=== PATIENT | male | born 1945 | race Asian ===

== ENCOUNTER 2019-08-27 06:44 | Day surgery (SDC) | payer MEDICARE, OTHER ==
[~2019-08-27 06:44] MED LIST: CYCLOPENTOLATE 1% OPHTH DROPS 2 ML ONE; KETOROLAC 0.45% OPHTH DROPS ONE; PHENYLEPHRINE 2.5% OPHTH 2 ML DROPS ONE; PROPARACAINE 0.5% OPHTH DROPS 15 ML ONE
[2019-08-27] MEDS ORDERED: MIDAZOLAM 2 MG/2 ML VIAL IVP ONE (06:45)
[2019-08-27] MEDS ORDERED: fentaNYL 100 MCG/2 ML VIAL IVP ONE (06:45)
[2019-08-27] MEDS ORDERED: LACTATED RINGERS 500 ML IV ONE (06:49)
[2019-08-27] MEDS ORDERED: CYCLOPENTOLATE 1% OPHTH DROPS 2 ML LEFTEYE ONE (07:00)
[2019-08-27] MEDS ORDERED: KETOROLAC 0.45% OPHTH DROPS LEFTEYE ONE (07:00)
[2019-08-27] MEDS ORDERED: PROPARACAINE 0.5% OPHTH DROPS 15 ML LEFTEYE ONE ×2 (07:00→07:54)
[2019-08-27] MEDS ORDERED: PHENYLEPHRINE 2.5% OPHTH 2 ML DROPS LEFTEYE ONE (07:00)
[2019-08-27] MEDS ORDERED: TRIAMCIN/MOXIFLOX OPHTHALMIC 0.6 ML VIAL IO ONE (07:07)
[2019-08-27] MEDS ORDERED: BRIMONIDINE 0.2% OPHTH DROPS 5 ML ONE (07:07)
[2019-08-27] MEDS ORDERED: TIMOLOL 0.5% OPHTH DROPS ONE (07:08)
[2019-08-27] MEDS ORDERED: BSS/LIDOCAINE/EPINEPHRINE 1 ML SYRINGE ONE (07:08)
[2019-08-27] MEDS ORDERED: VANCOMYCIN OPHTHALMI 8MG/0.8ML 8 MG/0.8 ML SYRINGE IO ONE (07:09)
--- NOTE | 2019-08-27 07:32 | ANESTHESIA ---
Pre-Anesthesia VS, & Labs - Diagnosis L senile combined cataract - Procedure L extraction cataract, w/IOL Vital Signs: Temp Pulse Resp BP Pulse Ox 36.3 C L 52 L 16 154/82 H 96 08/27/19 06:54 08/27/19 06:54 08/27/19 06:54 08/27/19 06:54 08/27/19 06:54 Height 5 ft 10 in Weight (kg) 117 kg - NPO >8 hours - Lab Results Current Lab Results: Laboratory Tests 08/27/19 07:08: POC Whole Bld Glucose 100 Home Medications and Allergies Home Medications: Ambulatory Orders Dorzolamide 2% Ophth Drops [Trusopt 2% Ophth Drops] 1 drops RIGHTEYE DAILY 08/27/19 Sertraline [Zoloft] 25 mg PO DAILY 08/27/19 Latanoprost 2.5 ml OP HS 04/08/13 Meloxicam [Mobic] 15 mg PO DAILY 04/08/13 Simvastatin [Zocor] 40 mg PO QPM 04/08/13 Telmisartan/Hydrochlorothiazid [Micardis Hct 80-25 mg Tablet] 1 each PO BID 04/08/13 Timolol [Betimol] 5 ml OP BID 04/08/13 Dorzolamide 2% Ophth Drops [Trusopt 2% Ophth Drops] 1 drops RIGHTEYE DAILY 08/27/19 Sertraline [Zoloft] 25 mg PO DAILY 08/27/19 Allergies/Adverse Reactions: Allergies Allergy/AdvReac Type Severity Reaction Status Date / Time No Known Drug Allergies Allergy Verified 04/08/13 13:42 Anes History & Medical History - Anesthetic History Anesthesia Complications: reports: No previous complications Family history of Anesthesia Complications: Denies Family history of Malignant Hyperthermia: Denies - Medical History Cardiovascular: reports: Hypertension, High cholesterol Pulmonary: reports: Sleep apnea, CPAP use Gastrointestinal: reports: None Urinary: reports: Benign prostate hypertrophy Musculoskeletal: reports: Osteoarthritis Skin: reports: None - Surgical History Eyes Ears Nose Throat (EENT): Cataracts Orthopedic: Hip replacement Exam General: Alert, Oriented x3, Cooperative Dental: Dentures full Upper Mouth Openin Fingerbreadth Neck Mobility: Normal Mallampati classification: II Thyromental Distance: 4-6 cm Respiratory: Lungs clear, Normal breath sounds, No respiratory distress Cardiovascular: Regular rate Neurological: Normal speech Mental/Cognitive Status: Alert/Oriented X3, Normal for patient Cognitive Status: Within normal limits Plan Anesthesia Type: MAC Consent for Procedure(s) Verified and Reviewed: Yes Code Status: Attempt Resuscitation ASA classification: 2-Mild systemic disease Is this case an emergency?: No
[2019-08-27] MEDS ORDERED: BRIMONIDINE 0.2% OPHTH DROPS 5 ML OPTH ONE (07:58)
[2019-08-27] MEDS ORDERED: TIMOLOL 0.5% OPHTH DROPS OPTH ONE (07:59)
[2019-08-27] MEDS ORDERED: CHONDR SULF/HYALURONATE SYRINGE IO ONE (07:59)
[2019-08-27] MEDS ORDERED: EPINEPHrine 1 MG/ML AMP IVP ONE (07:59)
[2019-08-27] MEDS ORDERED: BSS/LIDOCAINE/EPINEPHRINE 1 ML SYRINGE IO ONE (08:00)
[2019-08-27 08:29] VITALS: BP 118/70
--- NOTE | 2019-08-27 15:56 | OPERATIVE REPORT ---
DATE OF SERVICE: 08/27/2019 Physician: Celio Crawford MD PREOPERATIVE DIAGNOSIS: Visually significant cataract, left eye. Cataract surgery was performed on the right eye on 04/09/2013. POSTOPERATIVE DIAGNOSIS: Visually significant cataract, left eye. Cataract surgery was performed on the right eye on 04/09/2013. PROCEDURE: Phacoemulsification with posterior chamber intraocular lens implant, left eye. SURGEON: Celio Crawford MD ANESTHESIA: Monitored anesthesia care. COMPLICATIONS: None. 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 Best corrected visual acuity was 20/125 with glare to hand motion vision in the left eye. Indications for surgery are overall decrease in vision, difficulty seeing words on a computer screen, difficulty reading, difficulty seeing words, closed caption or game scores on TV, difficulty driving in low light or at night, difficulty driving at night because of headlights from other vehicles, and difficulty with glare or bright lights in any situation. He was consented at length concerning risks and benefits of cataract surgery, after which he expressed a desire to proceed with surgery. OPERATIVE PROCEDURE: The patient was taken to OR #3 and placed under monitored anesthesia care. A surgical timeout was conducted confirming correct patient, correct procedure, and correct surgical site. He was given topical anesthesia, then prepped and draped in the usual sterile fashion. The eye was entered at the 6 and 3 o'clock positions. Intracameral Shugarcaine was injected into the anterior chamber, followed by Viscoat. A continuous-tear curvilinear capsulorrhexis was performed. The nucleus was hydrodissected and phacoemulsified. The cortex was evacuated using automated infusion and aspiration. Provisc was injected in the capsular bag and a 20.5 diopter intraocular lens inserted in the bag. Approximately 0.25 mL of a mixture of triamcinolone and moxifloxacin was injected transsclerally into the vitreous. An additional 0.55 mL of a mixture of triamcinolone, moxifloxacin, and vancomycin was injected subconjunctivally in the superior quadrant for infection and inflammation prophylaxis. I and A was used to evacuate the viscoelastic materials. The eye was inflated to physiologic pressure using balanced salt solution and found to be watertight. The patient was taken from the operating room in good condition and given postoperative instructions. TD: 08/27/2019 08:22 ISAAC
== END 2019-08-27 06:45 | disposition home or self-care (01) ==
LOC: SDS 06:44
PROVIDERS: ATTEND Ophthalmology
PROC: 08RK3JZ Replacement of Left Lens with Synthetic Substitute, Percutaneous Approach (ICD-10-PCS; principal; 2019-08-27 08:00)
DX: H25.812 Combined forms of age-related cataract, left eye (principal); E11.9 Type 2 diabetes mellitus without complications; G47.30 Sleep apnea, unspecified; I10 Essential (primary) hypertension; Z87.891 Personal history of nicotine dependence
CPT/HCPCS: 66984; A9270; J3490; V2632